=== PATIENT | female | born 1970 | race Caucasian/White ===

== ENCOUNTER 2017-10-17 22:02 | Emergency (ER) | payer SELFPAY ==
[2017-10-17 22:07] VITALS: BMI 27.8
--- NOTE | 2017-10-18 00:16 | DR.GENAD ---
HPI - HPI Comment HPI Comment: GETTING WORSE. - Complaint/Symptoms Chief Complaint Doctors Comments: ABDOMINAL PAIN, N/V/D TIMES 2 WEEKS. Chief Complaint:: PT C/O NAUSEA AND STOMACH PAIN. STARTS EPIGASTRIC AND GOES ALL THE WAY DOWN TO HER PELVIC PAIN. ONSET VALENTINES WEEKEND. STATES SHE VOMITS EVERYTIME SHE EATS OR HAS DIARRHEA SINCE THEN. PT STATES THIS PAST WEEK IT HAS BEEN WORSE - Nurses notes reviewed Nurses Notes Review: Yes - Source History Provided: Patient - Mode of Arrival Mode of Arrival: Ambulatory - Timing Onset of Chief Complaint: 09/10/17 Came on: Suddenly - Duration Duration: Constant Duration: Days - Severity Severity: Moderate PMH - PMH Past Medical History: Yes Past Medical History: Angina, Anxiety, Arthritis, GERD, Kidney Stones Past Surgical History: Yes Surgical History: Hysterectomy, Tonsillectomy - Family History History of Family Medical Conditions: Yes Family Medical History: Cancer, Hypertension - Social History Do you use any recreational Drugs:: No - infectious screening Have you traveled outside the country in the last 6 months?: No ROS - Review of Systems Constitutional: Fever (AT HOME), Weakness, Fatigue, Loss of Appetite. negative : Chills Eyes: No Symptoms Reported. negative: Eye Pain, Discharge ENTM: No Symptoms Reported. negative: Ear Pain, Nose Discharge, Nose Congestion , Throat Pain Respiratoy: No Symptoms Reported. negative: Productive Cough, Non-Productive Cough, Short of Breath, Wheezing, Hemoptysis Cardiovascular: No Symptoms Reported. negative: Chest Pain, Edema Gastrointestinal/Abdominal: Abdominal Pain, Diarrhea, Nausea, Vomiting Genitourinary: negative: Dysuria, Frequency, Hematuria Neurological: Weakness, Dizziness. negative: Headache Musculoskeletal: Muscle Pain Integumentary: Dryness Hematologic/Lymphatic: No Symptoms Reported Endocrine: No Symptoms Reported All Other Systems: Reviewed and Negative PE - Vital Signs Vitals: Temperature 98.1 F Pulse Rate [Left Radial] 72 Pulse Rate 110 Respiratory Rate 18 Blood Pressure [Left Arm] 136/80 Blood Pressure [Right Arm] 102/54 Blood Pressure 136/72 O2 Sat by Pulse Oximetry 100 - General Limitations: No Limitations General Appearance: Alert - Head Head Exam: Normal Inspection - Eyes Eye exam: Normal Appearance - ENT ENT Exam: Normal External Ear Exam External Ear Exam: Normal External Inspection TM/Canal Exam: Bilateral Normal Nose Exam: Normal Nose Exam Mouth Exam: Normal Inspection Throat Exam: Normal Inspection - Neck Neck Exam: Normal Inspection - Chest Chest Inspection: Symmetric Chest Wall Rise - Respiratory Respiratory Exam: Normal Lung Sounds Bilat Respiratory Exam: Bilateral Clear to Auscultation - Cardiovascular Cardiovascular Exam: Regular Rate, Normal Rhythm, Normal Heart Sounds - Abdominal Exam Abdominal Exam: Normal Bowel Sounds, Soft, Tenderness Abdominal Tenderness: Diffuse, Moderate - Back Back Exam: Normal Inspection - Neurologic Neurological Exam: Alert, Oriented X3 - Psychiatric Psychiatric Exam: Normal Affect, Normal Mood - Skin Skin Exam: Normal Color MDM - Additional Information Additional Information Obtained From: Family - Differential Diagnosis Differential Diagnosis: ABDOMINAL, GASTROENTERITIS, DEHYDRATION Course - Treatment Treatment: SEE ORDERS. - Education/Counseling Education/Counseling: Patient, Family, Education Educated On: Treatment, Diagnosis ROR - Labs Reviewed Laboratory Results Reviewed?: Yes Result Diagrams: 10/18/17 00:20 10/18/17 00:20 Laboratory: 10/18/17 00:13 Stool - Final WBC 19.0 X10^3/uL (3.6-10.0) H 10/18/17 00:20 RBC 4.86 X10^6/uL (3.5-5.4) 10/18/17 00:20 Hgb 14.8 g/dL (12.0-16.0) 10/18/17 00:20 Hct 42.0 % (36.0-47.0) 10/18/17 00:20 MCV 86.5 fL (80.0-100.0) 10/18/17 00:20 MCH 30.5 pg (27.0-34.0) 10/18/17 00:20 MCHC 35.3 g/dL (33.0-35.0) H 10/18/17 00:20 RDW 12.9 % (11.6-16.5) 10/18/17 00:20 Plt Count 276 X10^3/uL (150.0-450.0) 10/18/17 00:20 Plt Count Comment Adequate (ADEQUATE) 10/18/17 00:20 MPV 8.5 fL (7.4-11.0) 10/18/17 00:20 Neut % (Auto) 77.1 % (42.0-75.0) H 10/18/17 00:20 Lymph % (Auto) 16.2 % (21.0-51.0) L 10/18/17 00:20 [place] % (Auto) 5.0 % (0.0-13.0) 10/18/17 00:20 Eos % (Auto) 1.0 % (0.9-2.9) 10/18/17 00:20 Baso % (Auto) 0.7 % (0.2-1.0) 10/18/17 00:20 Neut # (Auto) 14.6 x10^3/uL (2.2-4.8) H 10/18/17 00:20 Lymph # (Auto) 3.1 X10^3/uL (1.3-2.9) H 10/18/17 00:20 [place] # (Auto) 0.9 x10^3/uL (0.3-0.8) H 10/18/17 00:20 Eos # (Auto) 0.2 x10^3/uL (0.0-0.2) 10/18/17 00:20 Baso # (Auto) 0.1 X10^3/uL (0.0-0.1) 10/18/17 00:20 Absolute Nucleated RBC 0.1 /100WBC 10/18/17 00:20 Plt Morphology Comment Normal (NORMAL) 10/18/17 00:20 RBC Morphology Normal (NORMAL) 10/18/17 00:20 Sodium 142 mmol/L (136-145) 10/18/17 00:20 Corrected Sodium TNP 10/18/17 00:20 Potassium 4.1 mmol/L (3.5-5.1) 10/18/17 00:20 Chloride 104 mmol/L (98-107) 10/18/17 00:20 Carbon Dioxide 27.8 mmol/L (21-32) 10/18/17 00:20 BUN 14 mg/dL (7-18) 10/18/17 00:20 Creatinine 0.83 mg/dL (0.55-1.02) 10/18/17 00:20 Est GFR (MDRD) Af Amer > 60 (>60) 10/18/17 00:20 Est GFR (MDRD) Non-Af > 60 (>60) 10/18/17 00:20 Glucose 108 mg/dL (65-99) H 10/18/17 00:20 Calcium 8.8 mg/dL (8.5-10.1) 10/18/17 00:20 Corrected Calcium TNP 10/18/17 00:20 Total Bilirubin 0.30 mg/dL (0.2-1.0) 10/18/17 00:20 AST 23 Units/L (15-37) 10/18/17 00:20 ALT 28 Units/L (12-78) 10/18/17 00:20 Alkaline Phosphatase 140 Units/L (46-116) H 10/18/17 00:20 Total Protein 7.8 g/dL (6.4-8.2) 10/18/17 00:20 Albumin 4.2 g/dL (3.4-5.0) 10/18/17 00:20 Globulin 3.6 g/dL (2.5-4.5) 10/18/17 00:20 Albumin/Globulin Ratio 1.2 Ratio (1.1-2.1) 10/18/17 00:20 Amylase 43 Units/L (25-115) 10/18/17 00:20 Lipase 90 Units/L (73-393) 10/18/17 00:20 Specimen Type Clean catch urine 10/18/17 00:15 Urine Color Yellow (YELLOW) 10/18/17 00:15 Urine Appearance Hazy (CLEAR) 10/18/17 00:15 Urine pH 5.0 (5.0 - 8.0) 10/18/17 00:15 Ur Specific [place] 1.025 (1.000-1.030) 10/18/17 00:15 Urine Protein 1+ (NEGATIVE) 10/18/17 00:15 Urine Glucose (UA) Negative (NEGATIVE) 10/18/17 00:15 Urine Ketones Negative (NEGATIVE) 10/18/17 00:15 Urine Occult Blood 5+ (NEGATIVE) 10/18/17 00:15 Urine Nitrite Negative (NEGATIVE) 10/18/17 00:15 Urine Bilirubin Negative (NEGATIVE) 10/18/17 00:15 Urine Urobilinogen Normal (NORMAL) 10/18/17 00:15 Ur Leukocyte Esterase 2+ (NEGATIVE) 10/18/17 00:15 Urine RBC 3-5 /HPF (NONE SEEN) 10/18/17 00:15 Urine WBC 3-5 /HPF (NONE SEEN) 10/18/17 00:15 Ur Squamous Epith Cells Numerous /HPF (NEGATIVE) 10/18/17 00:15 Urine Bacteria Trace /HPF (NEGATIVE) 10/18/17 00:15 Urine Mucus Few /HPF (NEGATIVE) 10/18/17 00:15 Ur Culture Indicated? No/not indicated 10/18/17 00:15 Stool Description 10g yellow mucoid lq 10/18/17 00:13 Stool for White Cells Positive (NEGATIVE) A 10/18/17 00:13 Stl C. diff Tox B Gene Negative (NEGATIVE) 10/18/17 00:13 Stl C. diff [id number] Negative (NEGATIVE) 10/18/17 00:13 Cryptosporid parvum Ag Negative (NEGATIVE) 10/18/17 00:13 E. histolytica Antigen Negative (NEGATIVE) 10/18/17 00:13 Giardia lamblia Ag Negative (NEGATIVE) 10/18/17 00:13 - XRAY XRAY Interpreted by: Radiologist XRAY Findings: REPORT DISCUSS WITH PATIENT. - Diagnosis Discharge Problem: Dehydration, Infective diarrhea Abdominal pain Qualifiers: Abdominal location: generalized Qualified Code(s): R10.84 - Generalized abdominal pain Nausea & vomiting Qualifiers: Vomiting type: bilious vomiting Qualified Code(s): R11.14 - Bilious vomiting - Discharge Plan Disposition: 01 HOME, SELF-CARE Condition: Stable Prescriptions: Ciprofloxacin HCl [CIPRO 500 MG TAB *] 500 mg PO Q12H #30 tab Metronidazole [Flagyl Tab 500 mg] 500 mg PO TID #10 tab Promethazine HCl [PHENERGAN TAB 25 MG *] 25 mg PO Q6H PRN #15 tab PRN Reason: Nausea/Vomiting - Follow ups/Referrals Follow ups/Referrals: NFD,None [Primary Care Provider] - 3 days - Instructions Instructions: Leukocytosis, Nausea and Vomiting, Adult, [id number], Dehydration, Adult, [id number], Abdominal Pain, Adult, [id number], Diarrhea , Adult, Knzx-[id number] Additional Instructions: RETURN TO ED IF WORSE.
[2017-10-18] MEDS ORDERED: NS 1000 ML 1,000 ML ONE (00:32)
[2017-10-18] MEDS ORDERED: ZOFRAN INJ 4 MG VIAL ONE (00:33)
[2017-10-18] MEDS ORDERED: DEMEROL INJ ONE (00:33)
[2017-10-18] MEDS ORDERED: NS 1000 ML 1,000 ML IV ONE (00:42)
[2017-10-18] MEDS ORDERED: ZOFRAN INJ 4 MG VIAL IVP ONE (00:42)
[2017-10-18] MEDS ORDERED: DEMEROL INJ IVP ONE (00:43)
[2017-10-18 00:44] LABS: BILIRUBIN,URINE NEGATIVE (NEGATIVE); BLOOD/HEMOGLOBIN,URINE 5+ (NEGATIVE); GLUCOSE, URINE NEGATIVE (NEGATIVE); KETONES,URINE NEGATIVE (NEGATIVE); LEUKOCYTE ESTERASE ,URINE 2+ (NEGATIVE); NITRITES,URINE NEGATIVE (NEGATIVE); PROTEIN,URINE 1+ (NEGATIVE); UROBILINOGEN,URINE NORMAL (NORMAL)
[2017-10-18 00:57] LABS: BASOPHILS # (AUTO) 0.1 X10^3/uL (0.0-0.1); BASOPHILS % (AUTO) 0.7 % (0.2-1.0); EOSINOPHILS # (AUTO) 0.2 x10^3/uL (0.0-0.2); HEMOGLOBIN 14.8 g/dL (12.0-16.0); LYMPHOCYTES # (AUTO) 3.1 X10^3/uL (1.3-2.9); LYMPHOCYTES % (AUTO) 16.2 % (21.0-51.0); MEAN CORPUSCULAR HEMOGLOBIN 30.5 pg (27.0-34.0); MEAN CORPUSCULAR HGB CONC 35.3 g/dL (33.0-35.0); MEAN CORPUSCULAR VOLUME 86.5 fL (80.0-100.0); MEAN PLATELET VOLUME 8.5 fL (7.4-11.0); MONOCYTES # (AUTO) 0.9 x10^3/uL (0.3-0.8); NEUTROPHILS # (AUTO) 14.6 x10^3/uL (2.2-4.8); NEUTROPHILS % (AUTO) 77.1 % (42.0-75.0); PLATELET COUNT 276 X10^3/uL (150.0-450.0); RED BLOOD COUNT 4.86 X10^6/uL (3.5-5.4); RED CELL DISTRIBUTION WIDTH 12.9 % (11.6-16.5)
[2017-10-18 01:04] LABS: APPEARANCE,URINE HAZY (CLEAR); BACTERIA,URINE TRACE /HPF (NEGATIVE); COLOR,URINE YELLOW (YELLOW); SQUAMOUS EPITHELIAL CELL,UR NUMEROUS /HPF (NEGATIVE)
[2017-10-18 01:05] LABS: MUCUS,URINE FEW /HPF (NEGATIVE)
[2017-10-18 01:12] LABS: ALANINE AMINOTRANSFERASE 28 Units/L (12-78); ALBUMIN 4.2 g/dL (3.4-5.0); ALKALINE PHOSPHATASE 140 Units/L (46-116); AMYLASE 43 Units/L (25-115); ASPARTATE AMINO TRANSFERASE 23 Units/L (15-37); BLOOD UREA NITROGEN 14 mg/dL (7-18); CALCIUM 8.8 mg/dL (8.5-10.1); CARBON DIOXIDE 27.8 mmol/L (21-32); CHLORIDE 104 mmol/L (98-107); CREATININE 0.83 mg/dL (0.55-1.02); LIPASE 90 Units/L (73-393); SODIUM 142 mmol/L (136-145); TOTAL PROTEIN 7.8 g/dL (6.4-8.2); eGFR BLACK RACES > 60 (>60); eGFR NON BLACK RACES > 60 (>60)
[2017-10-18 01:21] LABS: PLATELET MORPHOLOGY COMMENT NORMAL (NORMAL)
[2017-10-18 01:24] LABS: STOOL FOR WBC POSITIVE (NEGATIVE)
--- NOTE | 2017-10-18 01:35 | CT ---
CT abdomen and pelvis withoutcontrast Indication: Nausea with epigastric pain Comparison: None available Technique: Multiple axial images of the abdomen and pelvis were obtained from the lung bases to the pubic symphy sis without the administration of IV contrast. Findings: Lung bases are clear. No focal hepatic lesion identified given the limitations of a noncontrast exami [facility] [place]. Previous cholecystectomy is noted. No bile duct dilatation. The spleen, pancreas and adrenal glands are normal. Neither kidney demonstrates evidence of nephrolithiasis, hydronephrosis or mass. U pper GI tract is without evidence of mass or obstruction. There is slight increased fluid distention within the rectum and colon without evidence of mass or obstruction. Terminal ileum is within normal limits. The appendix is normal. The abdominal aorta is normal in caliber with scattered calcified ath erosclerotic disease. Small fat containing paraumbilical hernia. Review of bone windows demonstrates no acute osseous abnormality. Impression: 1.Fluid distention of the colon and rectum is nonspecific however suspicious for either an enterocoli tis or ileus. No evidence of obstruction. 2. The appendix is normal. Reported By:
[2017-10-18 02:05] LABS: CRYPTOSPORIDIUM PARVUM ANTIGEN NEGATIVE (NEGATIVE); GIARDIA LAMBLIA ANTIGEN NEGATIVE (NEGATIVE)
[2017-10-18] MEDS ORDERED: FLAGYL IV PREMIX 500 MG BAG 500 MG/100 ML BAG IV ONE ×2 (02:07→02:11)
[2017-10-18] MEDS ORDERED: CIPRO TAB 500 MG PO ONE ×2 (02:08→02:11)
[2017-10-18] MEDS ORDERED: PHENERGAN INJ 25 MG ONE (02:15)
[2017-10-18 03:39] VITALS: BP 136/80
== END 2017-10-18 03:35 | disposition home or self-care (01) ==
LOC: ER 22:10
DX: E86.0 Dehydration (principal); A09 Infectious gastroenteritis and colitis, unspecified; R10.84 Generalized abdominal pain; R11.14 Bilious vomiting
CPT/HCPCS: 36415; 74176; 80053; 81001; 82150; 83630; 83690; 85025; 87045; 87328; 87329; 87336; 87449; 87493; 96365; 96374; 96375; 99283; 99284; A4222; S0030; J2175; J2405; J2550